=== PATIENT | male | born 1985 | race Caucasian/White ===

== ENCOUNTER 2021-10-02 11:51 | Emergency (ER) | payer OTHER ==
[~2021-10-02 11:51] MED LIST: BACTRIM 400-801 EACH PO; IBUPROFEN600 MG PO
[2021-10-02 12:50] LABS: HEMOGLOBIN 15.7 gm/dl (14.0-17.5); RED BLOOD COUNT 5.22 M/UL (4.20-5.50); WHITE BLOOD COUNT 7.9 K/UL (4.5-11.0)
[2021-10-02 13:23] LABS: BUN/CREATININE RATIO 15 (0-10)
== END 2021-10-02 14:22 | disposition home or self-care (01) ==
LOC: ER1 11:51
PROVIDERS: Physician Assistant
DX: R10.9 Unspecified abdominal pain (principal); R11.0 Nausea; F17.200 Nicotine dependence, unspecified, uncomplicated; I10 Essential (primary) hypertension; Z88.8 Allergy status to other drugs, medicaments and biological substances
CPT/HCPCS: 80053; 81001; 83690; 85025; 99284

== ENCOUNTER → 2022-02-16 | Outpatient (CLI) | payer OTHER | LOC: RAD 16:37 | DX: M54.2 Cervicalgia (principal) | CPT/HCPCS: 72040 ==